=== PATIENT | male | born 1965 ===

== ENCOUNTER 2021-03-02 16:52 | Emergency (ER) | payer OTHER ==
[~2021-03-02] VITALS: Ht 180.3 cm; Wt 81.6 kg
[2021-03-02 21:08] VITALS: BP 128/85
[2021-03-02] MEDS ORDERED: cefTRIAXone SOD 1,000 MG VL IM ONE (21:30)
[2021-03-02] MEDS ORDERED: BACITRACIN TOP OINT 1 UD PKG TOP ONE (21:30)
[2021-03-02] MEDS ORDERED: TETANUS-DIPTH-ACEL PERTUSSIS 0.5ML SYR Tdap IM ONE (21:30)
== END 2021-03-02 22:04 | disposition home or self-care (01) ==
LOC: ER 16:52
DX: S51.832A Puncture wound without foreign body of left forearm, initial encounter (principal); W54.0XXA Bitten by dog, initial encounter; Y93.89 Activity, other specified; Y92.89 Other specified places as the place of occurrence of the external cause; Y99.8 Other external cause status
CPT/HCPCS: 73090; 90471; 90715; 96372; 99284; J0696